=== PATIENT | male | born 1950 | race African-American/Black ===

== ENCOUNTER 2020-05-29 06:50 | Day surgery (SDC) | payer OTHER, BC ==
[2020-05-28 12:36] VITALS: BMI 34.0
--- OUTSIDE RECORDS SUMMARY | 2020-05-29 06:55 | XMS ---
:1950 Author Organization [facility] Support Name Relationship Address Phone RE, RETIRED Unavailable Unavailable Unavailable RE Unavailable Unavailable Unavailable JESSENIA MCCLENDON [address] [phone] [place] [address] Re-disclosure Warning The records that you are about to access may contain information from federally- assisted alcohol or drug abuse programs. If such information is present, then the following federally mandated warning applies: This information has been disclosed to you from records protected by federal confidentiality rules (42 CFR part 2). The federal rules prohibit you from making any further disclosure of this information unless further disclosure is expressly permitted by the written consent of the person to whom it pertains or as otherwise permitted by 42 CFR part 2. A general authorization for the release of medical or other information is NOT sufficient for this purpose. The Federal rules restrict any use of the information to criminally investigate or prosecute any alcohol or drug abuse patient.The records that you are about to access may contain highly sensitive health information, the redisclosure of which is protected by Article 27-F of the [facility] Public Health law. If you continue you may haveaccess to information: Regarding HIV / AIDS; Provided by facilities licensed or operated by the [facility] Office of Mental Health; or Provided by the [facility] Office for People With Developmental Disabilities. If such information is present, then the following [facility] mandated warning applies: This information has been disclosed to you from confidential records which are protected by state law. State law prohibits you from making any further disclosure of this information without the specific written consent of the person to whom it pertains, or as otherwise permitted by law. Any unauthorized further disclosure in violation of state law may result in a fine or senior care sentence or both. A general authorization for the release of medical or other information is NOT sufficient authorization for further disclosure. Insurance Providers Payer name Policy type Policy ID Covered Covered alliance party's Policy P jennifer / Coverage alliance party ID relationship to Gonzalez Inf ormation type gonzalez BC PPO [id number] SP [id number] MEDICARE [id number] SP [id number] 3 Results ID Date Data Source [id number] 05/26/2020 09:33:00 AM EDT [facility] Name Value Range Interpretation Description Data Sup porting Code Source(s) Document(s ) SARS [facility] coronavirus 2 RNA This lab was ordered by [facility] and reported by [facility]. Procedure
[2020-05-29] MEDS ORDERED: ceFAZolin SODIUM 1 GM VIAL ONE (08:29)
[2020-05-29] MEDS ORDERED: MIDAZOLAM HCL 2 MG/2 ML SINGLE DOSE VIAL ONE (08:30)
[2020-05-29] MEDS ORDERED: PROPOFOL 20 ML ONE ×2 (08:30→09:55)
--- NOTE | 2020-05-29 08:34 | HP ---
CHIEF COMPLAINT: Myogenic ptosis left eyelid PCP: Dr. Wilma Diggs HISTORY OF PRESENT ILLNESS: 69 year-old male with a PMH significant for HTN, HLD and prostate cancer s/p TURP, presents today for surgery on left eyelid for ptosis. Recent Travel: No PAST MEDICAL HISTORY: Hypertension Hyperlipidemia Essential tremor Male erectile disorder Thyroid nodule Obesity PAST SURGICAL HISTORY: Cholecystectomy TURP Social History: , lives alone, 4 adult children Smoking: never Alcohol: social Drugs: no Family history: Mother breast cancer Allergies No Known Allergies Allergy (Verified 05/28/20 12:27) HOME MEDICATIONS: Home Medications Medication Instructions Recorded Cholecalciferol (Vitamin D3) 2,000 unit PO DAILY 05/28/20 [Vitamin D3] Rosuvastatin Calcium [Crestor] 5 mg PO DAILY 05/28/20 REVIEW OF SYSTEMS CONSTITUTIONAL: Absent: fever, chills, diaphoresis, generalized weakness, malaise, loss of appetite, weight change HEENT: +Left lid lag interferes with vision Absent: rhinorrhea, nasal congestion, throat pain, throat swelling, difficulty swallowing, mouth swelling, ear pain, eye pain, visual changes CARDIOVASCULAR: Absent: chest pain, syncope, palpitations, irregular heart rate, lightheadedness, peripheral edema RESPIRATORY: Absent: cough, shortness of breath, dyspnea with exertion, orthopnea, wheezing, stridor, hemoptysis GASTROINTESTINAL: Absent: abdominal pain, abdominal distension, nausea, vomiting, diarrhea, constipation, melena, hematochezia GENITOURINARY: Absent: dysuria, frequency, urgency, hesitancy, hematuria, flank pain, genital pain MUSCULOSKELETAL: Absent: myalgia, arthralgia, joint swelling, back pain, neck pain SKIN: Absent: rash, itching, pallor HEMATOLOGIC/IMMUNOLOGIC: Absent: easy bleeding, easy bruising, lymphadenopathy, frequent infections ENDOCRINE: Absent: unexplained weight gain, unexplained weight loss, heat intolerance, cold intolerance NEUROLOGIC: Absent: headache, focal weakness or paresthesias, dizziness, unsteady gait, seizure, mental status changes, bladder or bowel incontinence PSYCHIATRIC: Absent: anxiety, depression, suicidal or homicidal ideation, hallucinations. PHYSICAL EXAMINATION Vital Signs - 24 hr 05/29/20 07:31 Temperature 98.5 F Pulse Rate 72 Respiratory 18 Rate Blood Pressure 142/91 O2 Sat by Pulse 97 Oximetry (%) GENERAL: Awake, alert, and fully oriented, in no acute distress. HEAD: Normal with no signs of trauma. EYES: Pupils equal, round and reactive to light, extraocular movements intact, sclera anicteric, conjunctiva clear. Left eyelid lag. EARS, NOSE, THROAT: Ears normal, nares patent, oropharynx clear without exudates. Moist mucous membranes. NECK: Normal range of motion, supple without lymphadenopathy, JVD, or masses. LUNGS: Breath sounds equal, clear to auscultation bilaterally. No wheezes, and no crackles. No accessory muscle use. HEART: Regular rate and rhythm, normal S1 and S2 without murmur, rub or gallop. ABDOMEN: Soft, nontender, not distended, normoactive bowel sounds, no guarding, no rebound, no masses. No hepatomegaly or splenomegaly. MUSCULOSKELETAL: Normal range of motion at all joints. No bony deformities or tenderness. No CVA tenderness. UPPER EXTREMITIES: 2+ pulses, warm, well-perfused. No cyanosis. No clubbing. No peripheral edema. LOWER EXTREMITIES: 2+ pulses, warm, well-perfused. No calf tenderness. No periph eral edema. NEUROLOGICAL: Cranial nerves II-XII intact. Normal speech. Normal gait. PSYCHIATRIC: Cooperative. Good eye contact. Appropriate mood and affect. SKIN: Warm, dry, normal turgor, no rashes or lesions noted, normal capillary refill. Labs in paper chart reviewed ECG in paper chart reviewed ASSESSMENT/PLAN: 69 year-old male with a PMH significant for HTN, HLD, and prostate cancer s/p TURP, here for surgery to repair left eyelid ptosis. Myogenic ptosis --to OR today Hypertension --BP is stable, not on home medications Hyperlipidemia --continue rosuvastatin Prostate cancer s/p TURP --stable, no acute issues Family Medical History Family History: As Documented Visit type - Medication Review Med list reviewed for High Risk Meds patients 65 and older: Yes - Emergency Visit Emergency Visit: No - New Patient This patient is new to me today: Yes Date on this admission: 05/29/20 - Critical Care Critical Care patient: No
[2020-05-29] MEDS ORDERED: ERYTHROMYCIN 0.5% OPHTHALMIC OINTMENT 3.5 GM TUBE ONE (09:19)
[2020-05-29] MEDS ORDERED: TETRACAINE 0.5% OPHTH SOLN 2 ML BOTTLE ONE (09:20)
[2020-05-29] MEDS ORDERED: LIDOCAINE 1%/EPI 1:100000 (20 ML MULTI DOSE VIAL) ONE (09:20)
[2020-05-29] MEDS ORDERED: POVIDONE-IODINE 5% OPHTHALMIC PREP 30 ML SOLUTION ONE (09:20)
[2020-05-29] MEDS ORDERED: BUPIVACAINE HCL/PF 0.5% (5MG/ML) 10 ML VIAL ONE (09:20)
[2020-05-29] MEDS ORDERED: ONDANSETRON 4 MG/2 ML VIAL IVPUSH PRN (10:38)
[2020-05-29] MEDS ORDERED: oxyCODONE HCL 5 MG TABLET PO PRN (10:38)
[2020-05-29] MEDS ORDERED: LACTATED RINGERS SOLUTION 1,000 ML IV SCH (10:45)
[2020-05-29 10:58] VITALS: TEMP 99.6
[2020-05-29 11:39] VITALS: PULSE 72
[2020-05-29 12:04] VITALS: BP 138/82
--- NOTE | 2020-05-30 08:43 | OP ---
DATE OF OPERATION: 05/29/2020 PREOPERATIVE DIAGNOSIS: Marked ptosis, left upper lid. POSTOPERATIVE DIAGNOSIS: Marked ptosis, left upper lid. PROCEDURE: Levator advancement, reattachment, right upper lid. SURGEON: Belkis Benavides MD ANESTHESIA: Local with sedation. COMPLICATIONS: None. ESTIMATED BLOOD LOSS: 1 mL. OPERATIVE REPORT: The patient was brought to the operating room and placed on the operating room table. Vital signs monitored by Anesthesia. Lid crease was marked symmetrically with the contralateral lid crease approximately 9 mm above the lash line. Timeout was performed. Patient was given intravenous sedation, and 2% Xylocaine and 1:100,000 epinephrine was injected for 0.50 mL in the central left upper lid below the lid crease and massaged for hemostasis and dispersion. Patient was prepped and draped in the usual sterile fashion exposing both eyes. Lid crease incision was made with a 15-blade, carried down through subcutaneous tissue and through the muscle layer through orbicularis with a Whitman needle. The septum was widely opened, exposing preaponeurotic fat which was retracted, exposing the levator, and there was significant dehiscence of the levator in rare fashion of the aponeurosis down toward the tarsus. plane was dissected inferiorly exposing the anterior-superior tarsus. The levator was then reattached with a mattress suture 6-0 nylon with a partial thickness tarsal bite to the appropriate position on the tarsus. It was tied. The patient was allowed to wake up, and it was felt to be too high, therefore it was backed up a little lower on the levator aponeurosis, a little higher on the tarsus, tied again. The patient was placed in upright position, and an MRD of approximately 3.5 was obtained. This was felt to be acceptable. The suture was tied, lid was everted, demonstrating no penetration of the suture. Antibiotic irrigation was used throughout the wound, and then the wound was closed with running 6-0 plain suture. was placed on the sutures, and the patient was taken to recovery room in stable condition. BELKIS BENAVIDES M.D. [id number]
== END 2020-05-29 12:04 | disposition home or self-care (01) ==
LOC: FASU 06:50
PROVIDERS: ATTEND Ophthalmology
PROC: 08SP0ZZ Reposition Left Upper Eyelid, Open Approach (ICD-10-PCS; principal; 2020-05-29 09:58)
DX: H02.422 Myogenic ptosis of left eyelid (principal)
CPT/HCPCS: 94760

== ENCOUNTER 2020-09-28 14:38 | Emergency (ER) | payer OTHER, BC | END 2020-09-28 16:28 | disposition home or self-care (01) | LOC: JVIRT 14:38 | DX: U07.1 COVID-19 (principal) | CPT/HCPCS: C9803; G2012-GT; U0003 ==

== ENCOUNTER 2020-11-22 05:28 | Day surgery (SDC) | payer OTHER, BC ==
[2020-11-21 12:40] VITALS: BMI 33.0
[2020-11-22 11:23] VITALS: TEMP 97.8
[2020-11-22 12:03] VITALS: BP 105/64; PULSE 88
== END 2020-11-22 11:57 | disposition home or self-care (01) ==
LOC: JASU-ENDO 05:28
PROVIDERS: ATTEND Internal Medicine Gastroenterology
PROC: 0DJD8ZZ Inspection of Lower Intestinal Tract, Via Natural or Artificial Opening Endoscopic (ICD-10-PCS; principal; 2020-11-22 10:00)
DX: Z12.11 Encounter for screening for malignant neoplasm of colon (principal); Z86.010 Personal history of colon polyps; K57.30 Diverticulosis of large intestine without perforation or abscess without bleeding; I10 Essential (primary) hypertension; Z85.46 Personal history of malignant neoplasm of prostate